=== PATIENT | female | born 1960 | race Caucasian/White ===

== ENCOUNTER → 2020-11-01 | Outpatient (CLI) | payer OTHER ==
[~2020-11-01] MED LIST: ASPIRIN81 MG PO; BUTALB-ACETAMI1 EAC1 PO; ELIQUIS 5 MG TAB5 MG PO; FAMOTIDINE20 MG PO; LISINOPRIL40 MG PO; LOPRESSOR 50 MG50 MG PO; MONTELUKAST SOD10 MG PO; PHENERGAN 25 MG25 M1 PO; PRAVASTATIN SOD10 MG PO; SERTRALINE HCL100 MG PO; TRAZODONE HCL150 MG PO; VITAMIN B12-FO1 EACH PO; VITAMIN D21250 MCG PO; ZANAFLEX 4 MG TA4 MG PO
== END ==
LOC: MRI 09:15
DX: D35.2 Benign neoplasm of pituitary gland (principal); G31.9 Degenerative disease of nervous system, unspecified
CPT/HCPCS: 36415; 70553; A9577

== ENCOUNTER 2021-04-11 17:59 | Inpatient (IN) | payer OTHER ==
[~2021-04-11] VITALS: Ht 170.2 cm; Wt 84.8 kg
[2021-04-11 19:04] LABS: HEMOGLOBIN 12.4 gm/dl (12.3-15.3); RED BLOOD COUNT 3.72 M/UL (4.00-5.10); WHITE BLOOD COUNT 11.5 K/UL (4.5-11.0)
[2021-04-11 19:23] LABS: BUN/CREATININE RATIO 12 (0-10)
[2021-04-11] MEDS ORDERED: LISINOPRIL40 MG PO (23:25)
[2021-04-11] MEDS ORDERED: LOPRESSOR 50 MG50 MG PO (23:25)
[2021-04-11] MEDS ORDERED: PRAVASTATIN SOD10 MG PO (23:26)
[2021-04-11] MEDS ORDERED: ASPIRIN81 MG PO (23:26)
[2021-04-11] MEDS ORDERED: SERTRALINE HCL100 MG PO (23:27)
[2021-04-11] MEDS ORDERED: VITAMIN D21250 MCG PO (23:27)
[2021-04-11] MEDS ORDERED: VITAMIN B12-FO1 EACH PO (23:28)
[2021-04-11] MEDS ORDERED: TRAZODONE HCL150 MG PO (23:28)
[2021-04-11] MEDS ORDERED: PHENERGAN 25 MG25 M1 PO (23:29)
[2021-04-11] MEDS ORDERED: ZANAFLEX 4 MG TA4 MG PO (23:29)
[2021-04-11] MEDS ORDERED: FAMOTIDINE20 MG PO (23:29)
[2021-04-11] MEDS ORDERED: MONTELUKAST SOD10 MG PO (23:30)
[2021-04-11] MEDS ORDERED: BUTALB-ACETAMI1 EAC1 PO (23:30)
[2021-04-12 03:14] LABS: HEMOGLOBIN 11.4 gm/dl (12.3-15.3); RED BLOOD COUNT 3.52 M/UL (4.00-5.10); WHITE BLOOD COUNT 9.2 K/UL (4.5-11.0)
[2021-04-12 03:40] LABS: BUN/CREATININE RATIO 11 (0-10)
[2021-04-13] MEDS ORDERED: ELIQUIS 5 MG TAB5 MG PO (09:41)
[2021-04-14 17:12] LABS: A/G RATIO 0.7 (0.7-1.7); ALBUMIN 2.8 g/dL (2.9-4.4); ALPHA-1-GLOBULIN 0.3 g/dL (0.0-0.4); ALPHA-2-GLOBULIN 1.1 g/dL (0.4-1.0); BETA GLOBULIN 0.9 g/dL (0.7-1.3); GAMMA GLOBULIN 2.1 g/dL (0.4-1.8); GLOBULIN, TOTAL 4.3 g/dL (2.2-3.9); IMMUNOGLOBULIN A, QN, SERUM 137 mg/dL (87-352); IMMUNOGLOBULIN G, QN, SERUM 2301 mg/dL (586-1602); IMMUNOGLOBULIN M, QN, SERUM 49 mg/dL (26-217); M-SPIKE 1.3 g/dL (Not Observed); PROTEIN, TOTAL, SERUM 7.1 g/dL (6.0-8.5)
== END 2021-04-13 11:17 | disposition home or self-care (01) | DRG 299 ==
LOC: ER1 17:59 → CDU 22:37 → PROG CARE 22:37
PROVIDERS: Physician Assistant Medical; Registered Nurse; ADMIT Internal Medicine
DX: T81.718A Complication of other artery following a procedure, not elsewhere classified, initial encounter (principal); J96.01 Acute respiratory failure with hypoxia; I82.401 Acute embolism and thrombosis of unspecified deep veins of right lower extremity; Z20.822 Contact with and (suspected) exposure to COVID-19; Y83.8 Other surgical procedures as the cause of abnormal reaction of the patient, or of later complication, without mention of misadventure at the time of the procedure; I26.99 Other pulmonary embolism without acute cor pulmonale; I10 Essential (primary) hypertension; E78.5 Hyperlipidemia, unspecified; G43.909 Migraine, unspecified, not intractable, without status migrainosus; E66.9 Obesity, unspecified; F41.9 Anxiety disorder, unspecified; F32.9 Major depressive disorder, single episode, unspecified; Z90.49 Acquired absence of other specified parts of digestive tract; Z90.710 Acquired absence of both cervix and uterus; Z83.3 Family history of diabetes mellitus; Z88.8 Allergy status to other drugs, medicaments and biological substances; Y92.89 Other specified places as the place of occurrence of the external cause; Z86.16 Personal history of COVID-19; Z91.041 Radiographic dye allergy status; Z68.30 Body mass index [BMI] 30.0-30.9, adult
CPT/HCPCS: ECHO; 36415; 70450; 80048; 80053; 82550; 82553; 82784; 83605; 83735; 83874; 83880; 83883; 84100; 84155; 84165; 84484; 85025; 85379; 85610; 86140; 86334; 93005; 93306; 93971; 99285; J1650; Q9967; U0002

== ENCOUNTER 2022-04-09 10:34 | Emergency (ER) | payer OTHER ==
[2022-04-09 12:34] LABS: HEMOGLOBIN 14.5 gm/dl (12.3-15.3); RED BLOOD COUNT 4.49 M/UL (4.00-5.10)
[2022-04-09 12:48] LABS: BUN/CREATININE RATIO 17 (0-10)
[2022-04-09] MEDS ORDERED: MEDROL DOSEPAK 24 MG PO (16:02)
== END 2022-04-09 19:35 | disposition home or self-care (01) ==
LOC: ER1 10:34
PROVIDERS: Physician Assistant
DX: M79.661 Pain in right lower leg (principal); I10 Essential (primary) hypertension
CPT/HCPCS: 73562; 73590; 80053; 85025; 85610; 85652; 85730; 86140; 93971; 99284